=== PATIENT | male | born 1995 | race African-American/Black ===

== ENCOUNTER 2019-11-09 18:36 | Inpatient (IN) | payer OTHER ==
[~2019-11-09] VITALS: Ht 175.3 cm; Wt 59.3 kg
[2019-11-09 19:18] LABS: HEMATOCRIT 49.8 % (42.0-52.0); HEMOGLOBIN 17.4 g/dl (13.5-17.5); MEAN CORPUSCULAR HEMOGLOBIN 30.1 pg (27.0-33.0); MEAN CORPUSCULAR HGB CONC 34.9 g/dl (32.0-36.5); PLATELET COUNT, AUTOMATED 277 10^3/uL (150-450); RED BLOOD COUNT 5.79 10^6/uL (4.30-6.10); WHITE BLOOD COUNT 6.3 10^3/uL (4.0-10.0)
[2019-11-09 19:49] LABS: AMPHETAMINES LEVEL URINE NEGATIVE (NEGATIVE); BARBITURATES URINE NEGATIVE (NEGATIVE); BENZODIAZEPINES URINE NEGATIVE (NEGATIVE); CANNABINOIDS URINE POSITIVE (NEGATIVE); COCAINE METABOLITE URINE NEGATIVE (NEGATIVE); METHADONE URINE NEGATIVE (NEGATIVE); OPIATES URINE NEGATIVE (NEGATIVE); PHENCYCLIDINE URINE NEGATIVE (NEGATIVE)
[2019-11-09 19:50] LABS: ACETAMINOPHEN LEVEL < 2.0 UG/ML (10.0-30.0); ALT/SGPT 19 U/L (12-78); BILIRUBIN,DIRECT 0.3 MG/DL (0.0-0.2); BILIRUBIN,TOTAL 1.4 MG/DL (0.2-1.0); BLOOD UREA NITROGEN 14 MG/DL (7-18); CALCIUM LEVEL 9.9 MG/DL (8.5-10.1); CARBON DIOXIDE LEVEL 27 MEQ/L (21-32); CHLORIDE LEVEL 106 MEQ/L (98-107); ETHYL ALCOHOL (ETHANOL) < 0.003 % (0.000-0.010); GLOMERULAR FILTRATION RATE > 60.0 (>60); GLUCOSE, FASTING 109 MG/DL (70-100); SALICYLATE LEVEL < 1.7 MG/DL (5.0-30.0); SODIUM LEVEL 141 MEQ/L (136-145); TOTAL PROTEIN 8.5 GM/DL (6.4-8.2)
[2019-11-09] MEDS ORDERED: haloperidoL 5 MG TAB PO STA (23:51)
[2019-11-10] MEDS ORDERED: IBUPROFEN 800 MG TAB PO ONE (12:00)
[2019-11-10] MEDS ORDERED: MAALOX 30 ML SUSP *UDC PO PRN (14:15)
[2019-11-10] MEDS ORDERED: traZODone 50 MG TAB PO PRN (14:15)
[2019-11-10] MEDS ORDERED: OLANZapine ORAL DISINTEGRATING TAB 5MG PO PRN (14:15)
[2019-11-10] MEDS ORDERED: MOM 30ML SUSPENSION UDC PO PRN (14:15)
[2019-11-10] MEDS ORDERED: NICOTINE 21MG/24HR 1 EA TRANSDERMAL TD PRN (14:15)
[2019-11-10] MEDS ORDERED: ACETAMINOPHEN TAB 650MG DOSE (2X325MG) PO PRN (14:15)
[2019-11-10 16:00] VITALS: BP 135/66
[2019-11-11 05:51] VITALS: BP 131/68
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
--- NOTE | 2019-11-11 11:29 | HPEPDOC ---
General Date of Admission Nov 10, 2019 at 14:11 Date of Service: Nov 11, 2019 Chief Complaint The patient is a 23-year-old male admitted with a reason for visit of Unspecified Psychotic Disorder. Source: Patient Exam Limitations: No limitations Severity: Mild Associated Symptoms: Denies Symptoms History of Present Illness Mr. Pittman is a 23-year-old male who was admitted to the behavioral health unit with a diagnosis of an unspecified psychotic disorder. Patient reported that he has recently been trying acid with his friends, the drug has turned him away from his family and from his cullen. He has also been smoking marijuana for some time. He also reported deterioration in his symptoms of depression. He was encouraged to seek a mental health evaluation by his mother and stepfather. He shows good insight into the negative effects of street drugs on his life. Patient has denied any medical issues at this time. Home Medications No Active Prescriptions or Reported Meds Allergies Coded Allergies: No Known Allergies (Unverified , 11/09/19) Past Medical History Medical History Unremarkable Surgical History None Family History Significant Family History: Hypertension (father) Social History * Smoker: Denies Alcohol: occationally Drugs: marijuana, other (recently tried LSD) A-FIB/CHADSVASC A-FIB History Current/History of A-Fib/PAF?: No Current PO Anticoag Therapy: No Review of Systems Constitutional: Denies: Chills, Fever, Night Sweats Eyes: Denies: Pain ENT: Denies: Head Aches Skin: Denies: Rash Pulmonary: Denies: Dyspnea, Cough Cardiovascular: Denies: Chest Pain, Palpitations Gastrointestinal: Denies: Nausea, Vomiting, Abdominal Pain, Diarrhea, Constipation Genitourinary: Denies: Dysuria, Retention Hematologic: Denies: Bruising Musculoskeletal: Denies: Neck Pain, Back Pain, Joint Pain, Muscle Pain, Spasms Neurological: Denies: Weakness, Numbness Psych: Reports: Depression, Thoughts of Self Harm (reported on ED presentation), Thoughts of Harming Other; Denies: Mood Normal, Memory Issues Physical Examination General Exam: Positive: Alert, Cooperative, No Acute Distress Eye Exam: Positive: PERRLA, Conjunctiva & lids normal, EOMI; Negative: Sclera icteric ENT Exam: Positive: Atraumatic, Mucous membr. moist/pink, Pharynx Normal, Tongue Midline Neck Exam: Positive: Supple; Negative: thyromegaly Chest Exam: Positive: Clear to auscultation, Normal air movement Heart Exam: Positive: Rate Normal, Regular Rhythm, Normal S1, Normal S2; Negative: Murmurs, Rubs Telemetry: Positive: No significant arrhythmia Abdomen Exam: Positive: Normal bowel sounds, Soft, Hepatospenomegaly; Negative: Tenderness Extremity Exam: Positive: Normal pulses; Negative: Clubbing, Cyanosis, Edema Skin Exam: Positive: Nl turgor and temperature; Negative: Breakdown, Lesion Neuro Exam: Positive: Normal Gait, Normal Speech, Strength at 5/5 X4 ext, Cranial Nerves 3-12 NL Psych Exam: Positive: Mood NL, Oriented x 3 Vital Signs Vital Signs Date Time Temp Pulse Resp B/P (MAP) Pulse Ox O2 Delivery O2 Flow Rate FiO2 11/11/19 05:51 97.8 85 14 131/68 (89) 11/10/19 16:00 100 Room Air Assessment/Plan #1. Depression. Complicated by the use of illicit drugs. With suicidal ideation. Management per psychiatry Medicine will sign off at this time. Please feel free to re-consult as needed. Plan / VTE VTE Prophylaxis Ordered?: No LYN RICHMOND PA-C Nov 11, 2019 11:28
[2019-11-11 17:52] VITALS: BP 128/80
[2019-11-12 07:12] VITALS: BP 130/77
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
== END 2019-11-12 11:35 | disposition home or self-care (01) | DRG 776 ==
LOC: M ED 18:36 → M ED INP 11-10 14:11 → M PSY 11-10 15:10
PROVIDERS: ADMIT Psychiatry & Neurology Psychiatry; ATTEND Psychiatry & Neurology Psychiatry
DX: F19.94 Other psychoactive substance use, unspecified with psychoactive substance-induced mood disorder (principal); R45.851 Suicidal ideations; F12.90 Cannabis use, unspecified, uncomplicated; F15.90 Other stimulant use, unspecified, uncomplicated